=== PATIENT | male | born 1970 | race Two or more races ===

== ENCOUNTER 2017-03-09 00:30 | Emergency (ER) | payer BC ==
[2017-03-09] MEDS ORDERED: NORMAL SALINE 500 ML IV ONE (01:42)
[2017-03-09 02:03] LABS: ABSOLUTE BASOPHILS # (AUTO) 0.1 10^3/uL (0.0-0.2); ABSOLUTE MONOCYTES (AUTO) 0.8 10^3/uL (0.1-1.4); ABSOLUTE NEUT (AUTO) 7.1 10^3/uL (1.7-8.2); BASOPHILS % (AUTO) 0.5 % (0-2); EOSINOPHILS % (AUTO) 8.9 % (0-6); HEMATOCRIT 42.1 % (37.9-51.0); HEMOGLOBIN 14.3 g/dL (13.5-17.0); HGB HCT DIFFERENCE 0.8; LYMPHOCYTES % (AUTO) 18.7 % (13-45); MEAN CORPUSCULAR HEMOGLOBIN 27.5 pg (27.0-33.4); MEAN CORPUSCULAR VOLUME 81 fl (80-97); MONOCYTES % (AUTO) 7.2 % (3-13); RED CELL DISTRIBUTION WIDTH 14.2 % (11.5-14.0); SEGMENTED NEUTROPHILS % (AUTO) 64.7 % (42-78); WHITE BLOOD COUNT 10.9 10^3/uL (4.0-10.5)
[2017-03-09 02:35] LABS: APPEARANCE,URINE CLEAR; BILIRUBIN,URINE SMALL (NEGATIVE); GLUCOSE, URINE NEGATIVE (NEGATIVE); KETONES,URINE NEGATIVE (NEGATIVE); LEUKOCYTE ESTERASE,URINE NEGATIVE (NEGATIVE); NITRITE,URINE NEGATIVE (NEGATIVE); PROTEIN,URINE NEGATIVE (NEGATIVE); URINE SPECIFIC GRAVITY 1.032; UROBILINOGEN,URINE NEGATIVE mg/dL (<2.0)
--- NOTE | 2017-03-09 02:47 | ER Document Report ---
ED GI/ - General Mode of Arrival: Ambulatory Information source: Patient TRAVEL OUTSIDE OF THE [place] IN LAST 30 DAYS: No - HPI Similar symptoms previously: No Recently seen / treated by doctor: No <JOHANNA CAPUTO - Last Filed: 03/09/17 03:52> <CAREN PICKERING - Last Filed: 03/09/17 06:11> - General Chief Complaint: Abdominal Pain Stated Complaint: ABDOMINAL PAIN Time Seen by Provider: 03/09/17 02:46 Notes: Patient is a 46-year-old male presenting to the emergency department for abdominal pain. Patient's pain is located in his right upper quadrant and states that it radiates around his back. Patient states he has had this pain before after eating onions and patient states last night he ate [place] food which exacerbated his pain. Patient also complains of some dizziness. Patient does drink coffee. Patient states he took omeprazole x2 today with no relief. Patient denies any urinary symptoms or fever. Patient has a history of hypertension and takes medication for such. Patient has no surgical history. ( JOHANNA CAPUTO) Past Medical History - General Information source: Patient - Social History Smoking Status: Never Smoker Frequency of alcohol use: Social Drug Abuse: None Patient has suicidal ideation: No Patient has homicidal ideation: No - Past Medical History Cardiac Medical History: Reports: Hx Hypertension Surgical Hx: Negative - Immunizations Hx Diphtheria, Pertussis, Tetanus Vaccination: Yes <JOHANNA CAPUTO - Last Filed: 03/09/17 03:52> - Social History Family History: Reviewed & Not Pertinent <CAREN PICKERING - Last Filed: 03/09/17 06:11> Review of Systems - Review of Systems Constitutional: No symptoms reported EENT: No symptoms reported Cardiovascular: No symptoms reported Respiratory: No symptoms reported Gastrointestinal: See HPI, Abdominal pain Genitourinary: No symptoms reported Male Genitourinary: No symptoms reported Musculoskeletal: See HPI Skin: No symptoms reported Hematologic/Lymphatic: No symptoms reported Neurological/Psychological: No symptoms reported -: Yes All other systems reviewed and negative <JOHANNA CAPUTO - Last Filed: 03/09/17 03:52> Physical Exam - Vital signs Interpretation: Normal <JOHANNA CAPUTO - Last Filed: 03/09/17 03:52> <CAREN PICKERING - Last Filed: 03/09/17 06:11> - Vital signs Vitals: Temp Pulse Resp BP Pulse Ox 98.4 F 80 16 138/83 H 98 03/09/17 00:43 03/09/17 00:43 03/09/17 00:43 03/09/17 00:43 03/09/17 00:43 - Notes Notes: GENERAL: Alert, interacts well. Mild distress. HEAD: Normocephalic, atraumatic. EYES: Appear normal. Pupils equal, round, and reactive to light. ENT: Moist mucus membranes, tongue midline. NECK: Full range of motion. Supple. Trachea midline. LUNGS: Clear to auscultation bilaterally, no wheezes, rales, or rhonchi. No respiratory distress. HEART: Regular rate and rhythm. No murmurs, gallops, or rubs. ABDOMEN: Soft, left upper quadrant tenderness to palpation, no guarding or rebound. Non-distended. Normal bowel sounds. EXTREMITIES: Moves all 4 extremities spontaneously. Normal strength. No edema. NEUROLOGICAL: Alert and oriented x3. Normal speech. No focal neurological deficits. GSC 15. PSYCH: Normal affect, normal mood. SKIN: Warm, dry, normal turgor. No rashes or lesions noted. (JOHANNA CAPUTO) Course - Laboratory Result Diagrams: 03/09/17 01:50 03/09/17 01:50 <JOHANNA CAPUTO - Last Filed: 03/09/17 03:52> - Laboratory Result Diagrams: 03/09/17 01:50 03/09/17 01:50 <CAREN PICKERING - Last Filed: 03/09/17 06:11> - Re-evaluation Re-evalutation: 03/09/17 06:10 Patient presents with reproducible left upper quadrant tenderness to palpation and nausea. Symptoms have improved after GI cocktail. Patient states that he has had this before and it feels the same. States that he took medications for a few days and went away. Patient is to avoid foods that may flare up gastritis. He is to return if he has any worsening or concerning symptoms. Understands and agrees with this plan. Stable at this time for discharge. Recommend follow-up with gastroenterology. (CAREN PICKERING) - Vital Signs Vital signs: Temp Pulse Resp BP Pulse Ox 98.4 F 68 18 130/70 H 98 03/09/17 00:43 03/09/17 05:41 03/09/17 05:41 03/09/17 05:41 03/09/17 05:41 - Laboratory Laboratory results interpreted by me: 03/09/17 03/09/17 03/09/17 01:50 01:50 01:50 WBC 10.9 H RDW 14.2 H Eosinophils % 8.9 H Absolute Eosinophils 1.0 H Potassium 5.1 H Creatinine 1.29 H Glucose 112 H Calcium 10.9 H Total Bilirubin 1.5 H Direct Bilirubin 0.6 H Urine Bilirubin SMALL H Discharge <JOHANNA CAPUTO - Last Filed: 03/09/17 03:52> <CAREN PICKERING - Last Filed: 03/09/17 06:11> - Discharge Clinical Impression: Upper abdominal pain Condition: Stable Disposition: HOME, SELF-CARE Instructions: Evaluation of Upper Abdominal Pain ([facility]), Gastritis ([facility]), Gastroenterology Prescriptions: Dicyclomine HCl [Bentyl 20 mg Tablet] 20 mg PO TID #30 tablet Ranitidine HCl 150 mg PO BID #60 tablet Sucralfate [Carafate 1 gm Tablet] 1 gm PO ACHS #120 tablet Forms: Return to Work Referrals: SARAH ORTEZ MD [Primary Care Provider] - Follow up as needed Scribe Attestation: 03/09/17 06:11 I personally performed the services described in the documentation, reviewed and edited the documentation which was dictated to the scribe in my presence, and it accurately records my words and actions. (CAREN PICKERING) Scribe Documentation - Scribe Written by Evelynibladonna:: Oswaldo Ortega, 03/09/2017 3:55 acting as scribe for :: Saida <JOHANNA CAPUTO - Last Filed: 03/09/17 03:52>
[2017-03-09 02:57] LABS: ALANINE AMINOTRANSFERASE 45 U/L (21-72); ALBUMIN 4.9 g/dL (3.5-5.0); ALKALINE PHOSPHATASE 84 U/L (38-126); ANION GAP 11 (5-19); ASPARTATE AMINO TRANSFERASE 30 U/L (17-59); BILIRUBIN,DIRECT 0.6 mg/dL (0.0-0.4); BILIRUBIN,TOTAL 1.5 mg/dL (0.2-1.3); BLOOD UREA NITROGEN 19 mg/dL (7-20); CALCIUM 10.9 mg/dL (8.4-10.2); CARBON DIOXIDE 29 mmol/L (22-30); CHLORIDE 102 mmol/L (98-107); CREATININE RESULT 1.29 mg/dL (0.52-1.25); GLUCOSE 112 mg/dL (75-110); LIPASE 69.5 U/L (23-300); POTASSIUM 5.1 mmol/L (3.6-5.0); SODIUM 141.6 mmol/L (137-145); TOTAL PROTEIN 8.2 g/dL (6.3-8.2)
[2017-03-09] MEDS ORDERED: ONDANSETRON 4 MG TAB.RAPDIS PO ONE (03:48)
[2017-03-09] MEDS ORDERED: SUCRALFATE 1 GM TABLET PO ONE (03:48)
[2017-03-09] MEDS ORDERED: FAMOTIDINE 20 MG TABLET PO ONE (03:48)
[2017-03-09] MEDS ORDERED: MORPHINE SULFATE 10 MG/ML INJ IV ONE (05:15)
[2017-03-09] MEDS ORDERED: DICYCLOMINE HCL 20 MG TABLET PO ONE (05:26)
[2017-03-09] MEDS ORDERED: ONDANSETRON ODT 4 MG TAB (6 TAB/DSPK) PO PRN (05:29)
[2017-03-09 05:45] VITALS: BP 130/70
== END 2017-03-09 05:40 | disposition home or self-care (01) ==
LOC: ER 00:30
DX: R10.11 Right upper quadrant pain (principal); R10.812 Left upper quadrant abdominal tenderness; R11.0 Nausea; R42 Dizziness and giddiness; I10 Essential (primary) hypertension; Z79.899 Other long term (current) drug therapy
CPT/HCPCS: 99284; 36415; 83690; 85025; 80053; 81001; J3490; S0119; J7040